=== PATIENT | female | born 1950 | race Caucasian/White ===

== ENCOUNTER 2025-01-15 15:09 | Observation (INO) ==
[2025-01-15 15:59] LABS: Basophils # (auto) 0.03 K/uL (0.00-0.20); Basophils % (auto) 0.5 %; Eosinophils # (auto) 0.15 K/uL (0.00-0.50); Eosinophils % (auto) 2.3 %; Hematocrit (blood only) 39.3 % (37.0-47.0); Hemoglobin 14.1 g/dl (12.0-16.0); Immature Granulocytes # (auto) 0.02 K/uL (0.01-0.20); Immature Granulocytes % (auto) 0.3 %; Lymphocytes # (auto) 2.07 K/uL (1.20-3.40); Lymphocytes % (auto) 32.4 %; Mean Corpuscular Hemoglobin 33.3 pg (25.0-34.0); Mean Corpuscular Hgb Conc 35.9 g/dL (32.0-36.0); Mean Corpuscular Volume 92.9 fL (80.0-100.0); Mean Platelet Volume 11.2 fL (9.4-12.4); Monocytes # (auto) 0.55 K/uL (0.11-0.59); Monocytes % (auto) 8.6 %; Neutrophils # (auto) 3.57 K/uL (1.40-6.50); Neutrophils % (auto) 55.9 %; Platelet Count 157 K/uL (130-400); RDW Coefficient of Variation 11.9 % (11.5-14.5); RDW Standard Deviation 40.9 fL (36.4-46.3); Red Blood Count 4.23 M/uL (4.20-5.40); White Blood Count 6.39 K/ul (4.8-10.8)
--- NOTE | 2025-01-15 16:11 | XRay Report ---
INDICATION: Chest pain. TECHNIQUE: Frontal radiograph of the chest. COMPARISON: None. FINDINGS: Cardiomegaly. Mild pulmonary vascular congestion.. No infiltrate, pleural effusion or pneumothorax. No acute osseous abnormality evident. IMPRESSION: Mild pulmonary vascular congestion. Electronically signed by Sai Reed 01-15-2025 4:10 PM
--- NOTE | 2025-01-15 16:17 | Electrocardiogram Report ---
Test Reason : Blood Pressure : */* mmHG Vent. Rate : 73 BPM Atrial Rate : 73 BPM P-R Int : 168 ms QRS Dur : 140 ms QT Int : 454 ms P-R-T Axes : 69 4 127 degrees QTcB Int : 500 ms Normal sinus rhythm Left bundle branch block Abnormal ECG No previous ECGs available Confirmed by Osvaldo Garcia ([id number]) on 01/15/2025 4:17:18 PM Referred By: Confirmed By: Osvaldo Garcia
--- NOTE | 2025-01-15 16:25 | Emergency Department Note ---
Impression & Plan Chest pain, Non-ST elevation IA (NSTEMI), Elevated brain natriuretic peptide (BNP) level, Pulmonary edema ED Provider Note HISTORY OF PRESENT ILLNESS: Patient is a 74-year-old female presenting with chest pain and shortness of breath. Patient reports that for the last week she has been having intermittent episodes of chest pain. Locates the pain to the substernal left side of her chest. Reports that any sort of exertion causes the pain to be significantly worse. She reports that at rest she is pain-free. She denies any history of cardiac stents. Reports she had very extensive cardiac workup, including echocardiograms and nuclear stress tests in the past. She reports that her nuclear stress test she recently had she failed. She is scheduled for a CT angiogram of her coronaries through [facility]. She states that it was recommended that she get a heart catheterization after he failed her nuclear stress test, but reports that there was an issue getting approval for the catheterization with insurance. She reports that the CT coronaries is set up to initiate the process for her to get a cath. States that she feels very short of breath more so than normal over the last few days. Denies any recent fevers. Reports a nonproductive cough. Denies any DVT or PE history. She is not on any anticoagulation or antiplatelet therapies. She reports she was admitted in September for congestive heart failure and has been taking her diuretic. She reports she has a history of left bundle branch block. ROS: as above PHYSICAL EXAM: Constitutional: Patient appears in no acute distress. HENT: Head: Normocephalic and atraumatic. Eyes: EOMI, PERRL Mouth/Throat: Mucous membranes moist. Neck: Trachea midline. Neck supple. Cardiovascular: RRR, No murmurs, rubs or gallops. Intact distal pulses. Pulmonary/Chest: No respiratory distress. Breath sounds clear and equal bilaterally. No wheezes or rales. Conversationally dyspneic Abdominal: Abdomen soft, no tenderness, rebound or guarding. Musculoskeletal: No edema, tenderness or deformity noted. Skin: Warm and dry. No rash, erythema, pallor or cyanosis Psychiatric: Appropriate mood and affect for situation. Neurological: Alert and keenly responsive. CN II-XII grossly intact, moving all extremities equally and fully. MDM: - Vitals signs showed hypertension. - History obtained via patient. History as above. - Chronic conditions affecting care: HTN; CHF - Differential diagnoses include, but are not limited to: Acute coronary syndrome; pulmonary embolism; dissection; tension pneumothorax; esophageal rupture; pneumonia - Order placed for continuous cardiac monitoring. At this time, monitor showed rate of 69 bpm with normal sinus rhythm, per my interpretation. - External medical records reviewed. - EKG image interpreted by myself showed normal sinus rhythm. Rate 73 bpm. QT 454. No acute ischemic changes. No palpable left bundle branch block. Patient reports she has a known left bundle branch block that was diagnosed in September 2024 - Laboratory workup interpreted by myself showed normal WBC; elevated BNP (169); elevated troponin (38..4); normal lipase - CXR image reviewed by myself showed evidence of some pulmonary vascular congestion, per my interpretation. Radiology notes mild pulmonary vascular congestion - Repeat troponin persistently elevated at 39.5 - Given patient's story, history and elevated troponins, will admit to hospital service for further evaluation and management. Patient is not appear overtly fluid overloaded on examination, so Lasix is not ordered. - Discussion was had with manager of case management about patient's case and need for admission - Hospitalist consulted for admission - Patient admitted to [facility] service for further evaluation and management. ASSESSMENT AND PLAN: Diagnosis: Chest pain; NSTEMI; elevated BNP; pulmonary edema Plan: admit Past Med/Surg History Problem List (Updated 01/15/25 @ 19:05 by Yuliana Ingram MD) Pulmonary edema (Acute) Elevated brain natriuretic peptide (BNP) level (Acute) Non-ST elevation IA (NSTEMI) (Acute) Chest pain (Acute) Recent urinary tract infection Hypertension Arthritis Hematuria Left flank pain Medical History Gout Surgical History History of dilation and curettage History of hysterectomy Family History Mother Hypertension Breast cancer Father Hypertension Colorectal cancer Social History Smoking Status: Never smoker Hx Alcohol Use: Yes Hx Substance Use: No Preferred Language: Danish marital status: Single current occupational status: retired Feels Safe at Home: Yes Allergies Allergies Allergy/AdvReac Type Severity Reaction Status Date / Time Sulfa (Sulfonamide Allergy Severe Verified 01/15/25 17:56 Antibiotics) Home Meds Home Medications Medication Instructions Recorded Confirmed amlodipine 5 mg tablet 5 mg PO QAM 01/15/25 01/15/25 aspirin 81 mg tablet,delayed 81 mg PO DAILY 01/15/25 01/15/25 release atenolol 50 mg tablet 50 mg PO QAM 01/15/25 01/15/25 atorvastatin 10 mg tablet 10 mg PO HS 01/15/25 01/15/25 buspirone 5 mg tablet 5 mg PO BID 01/15/25 01/15/25 cranberry 500 mg capsule 500 mg PO DAILY 01/15/25 01/15/25 duloxetine 60 mg capsule,delayed 60 mg PO DAILY 01/15/25 01/15/25 release furosemide 20 mg tablet 20 mg PO QAM 01/15/25 01/15/25 ibuprofen 200 mg tablet 800 mg PO DAILY 01/15/25 01/15/25 multivitamin 1 tab PO QA 01/15/25 01/15/25 trazodone 50 mg tablet 25 - 50 mg PO HS 01/15/25 01/15/25 valsartan 160 mg tablet 320 mg PO QA 01/15/25 01/15/25 vit C 250 mg-vit E 90 mg-zinc 40 2 tab PO QAM 01/15/25 01/15/25 mg-copper 1 [id number] capsule (PreserVision AREDS-2) Results & Data (ED) Vital Signs Vital Signs - 24 hr 01/15/25 15:11 01/15/25 15:19 01/15/25 15:19 Temperature 36.7 C Temperature Source Temporal Artery Scan Pulse Rate 82 Pulse Rate [Apical] 81 Pulse Rhythm Pulse Rhythm [Apical] Regular Pulse Strength [Apical] Normal Respiratory Rate 24 19 Respiratory Effort / Characteristics Non-Labored Spontaneous Non-Labored Spontaneous Respiratory Depth Normal Normal Respiratory Pattern Regular Blood Pressure 162/121 H Blood Pressure [Left Arm] 166/101 H Blood Pressure Mean 134 Blood Pressure Mean [Left Arm] 122 Blood Pressure Position [Left Arm] Lying Pulse Oximetry 99 98 Oxygen Delivery Method Room Air Room Air Room Air Sepsis Recent Fever Within 48 Hours No Sepsis New/Unexplained Change in Mental Status No Sepsis Action Taken by Nursing No Action Required 01/15/25 15:42 01/15/25 15:43 01/15/25 16:07 Temperature Temperature Source Pulse Rate 68 68 Pulse Rate [Apical] 72 Pulse Rhythm Regular Pulse Rhythm [Apical] Regular Pulse Strength [Apical] Normal Respiratory Rate 19 16 Respiratory Effort / Characteristics Non-Labored Spontaneous Respiratory Depth Normal Respiratory Pattern Regular Blood Pressure Blood Pressure [Left Arm] 151/81 H Blood Pressure Mean Blood Pressure Mean [Left Arm] 104 Blood Pressure Position [Left Arm] Lying Pulse Oximetry 97 98 Oxygen Delivery Method Room Air Room Air Sepsis Recent Fever Within 48 Hours Sepsis New/Unexplained Change in Mental Status Sepsis Action Taken by Nursing 01/15/25 18:00 Temperature Temperature Source Pulse Rate Pulse Rate [Apical] 69 Pulse Rhythm Pulse Rhythm [Apical] Pulse Strength [Apical] Normal Respiratory Rate 20 Respiratory Effort / Characteristics Non-Labored Spontaneous Respiratory Depth Normal Respiratory Pattern Regular Blood Pressure Blood Pressure [Left Arm] 157/132 H Blood Pressure Mean Blood Pressure Mean [Left Arm] 140 Blood Pressure Position [Left Arm] Lying Pulse Oximetry 97 Oxygen Delivery Method Room Air Sepsis Recent Fever Within 48 Hours Sepsis New/Unexplained Change in Mental Status Sepsis Action Taken by Nursing Laboratory Data 01/15/25 15:27 01/15/25 15:27 Lab Results 01/15/25 01/15/25 01/15/25 Range/Units 15:27 16:19 17:32 WBC 6.39 (4.8-10.8) K/ul RBC 4.23 (4.20-5.40) M/uL Hgb 14.1 (12.0-16.0) g/dl Hct 39.3 (37.0-47.0) % MCV 92.9 (80.0-100.0) fL MCH 33.3 (25.0-34.0) pg MCHC 35.9 (32.0-36.0) g/dL RDW Std Deviation 40.9 (36.4-46.3) fL RDW Coeff of [place] 11.9 (11.5-14.5) % Plt Count 157 (130-400) K/uL MPV 11.2 (9.4-12.4) fL Immature Gran % (Auto) 0.3 % Neut % (Auto) 55.9 % Lymph % (Auto) 32.4 % [place] % (Auto) 8.6 % Eos % (Auto) 2.3 % Baso % (Auto) 0.5 % Neut # (Auto) 3.57 (1.40-6.50) K/uL Lymph # (Auto) 2.07 (1.20-3.40) K/uL [place] # (Auto) 0.55 (0.11-0.59) K/uL Eos # (Auto) 0.15 (0.00-0.50) K/uL Baso # (Auto) 0.03 (0.00-0.20) K/uL Immature Gran # (Auto) 0.02 (0.01-0.20) K/uL Sodium 141 (136-145) mmol/L Potassium 3.6 (3.5-5.1) mmol/L Chloride 105 (98-107) mmol/L Carbon Dioxide 28 (21-32) mmol/L Anion Gap 8 (3-11) BUN 20 (6-23) mg/dl Creatinine 0.91 (0.6-1.2) mg/dl Est Cr Clr Drug Dosing 59.5 ml/min eGFR 65.38 BUN/Creatinine Ratio 22.0 H (10-20) Glucose 89 (70-99(Fasting)) mg/dl Calcium 9.6 (8.6-10.3) mg/dl Total Bilirubin 0.5 (0.2-1.0) mg/dl AST 20 (13-39) U/L ALT 21 (7-52) U/L Alkaline Phosphatase 104 (34-104) U/L Troponin I High Sens 38.4 H 39.5 H (0-14) pg/ml B-Natriuretic Peptide 169 H (0-100) pg/ml Total Protein 6.8 (6.0-8.3) gm/dl Albumin 4.3 (3.4-5.0) gm/dl Globulin 2.5 (2.5-4.0) gm/dl Albumin/Globulin Ratio 1.7 (0.9-2) Lipase 23 (11-82) U/L Administered Medications Discontinued Medications Aspirin (Aspirin 81 Mg Chew) 243 mg PO NOW STA Stop: 01/15/25 18:37 Last Admin: 01/15/25 18:46 Dose: 243 mg Documented By: SNS Ioversol (Optiray 320 125ml) 118 ml IV ONCE ONE Stop: 01/15/25 18:58 Last Admin: 01/15/25 18:58 Dose: 118 ml Documented By: [facility] Data Radiologist's Impression: Chest X-Ray 01/15/25 15:42 INDICATION: Chest pain. TECHNIQUE: Frontal radiograph of the chest. COMPARISON: None. FINDINGS: Cardiomegaly. Mild pulmonary vascular congestion.. No infiltrate, pleural effusion or pneumothorax. No acute osseous abnormality evident. IMPRESSION: Mild pulmonary vascular congestion. Electronically signed by Sai Reed 01-15-2025 4:10 PM Discharge Plan Visit Data Chief Complaint: Chest Pain Stated Complaint: CHEST PAIN, SOB ED Provider: Yuliana Ingram Discharge Problem: Chest pain, Non-ST elevation IA (NSTEMI), Elevated brain natriuretic peptide (BNP) level, Pulmonary edema Forms Stand Alone Forms: [facility] [employer] Prescriptions Prescriptions: No Action buspirone 5 mg tablet 5 mg PO BID trazodone 50 mg tablet 25 - 50 mg PO HS Rx Instructions: Patient takes 25mg - 50mg every night roughly 20 minutes before bedtime atorvastatin 10 mg tablet 10 mg PO HS amlodipine 5 mg tablet 5 mg PO QAM aspirin 81 mg Tablet,Delayed Release (Dr/Ec) 81 mg PO DAILY ibuprofen 200 mg Tablet 800 mg PO DAILY furosemide 20 mg tablet 20 mg PO QAM atenolol 50 mg tablet 50 mg PO QAM cranberry 500 mg Capsule 500 mg PO DAILY Rx Instructions: administer with meals valsartan 160 mg tablet 320 mg PO QAM duloxetine 60 mg capsule,delayed release(DR/EC) 60 mg PO DAILY PreserVision AREDS-2 250-90-40-1 mg Capsule 2 tab PO QAM multivitamin Tablet 1 tab PO QAM Referrals Referrals: Marci Jenkins CRNP [Primary Care Provider] -
[2025-01-15 16:32] LABS: Albumin Globulin Ratio 1.7 (0.9-2); Albumin Level 4.3 gm/dl (3.4-5.0); Bilirubin,Total 0.5 mg/dl (0.2-1.0); Calcium 9.6 mg/dl (8.6-10.3); Creatinine Clr Calc Pharmacy 59.5 ml/min; Globulin 2.5 gm/dl (2.5-4.0); Potassium 3.6 mmol/L (3.5-5.1); Total Protein 6.8 gm/dl (6.0-8.3)
[2025-01-15 16:35] LABS: Troponin I High Sensitivity 38.4 pg/ml (0-14)
--- NOTE | 2025-01-15 18:02 | History & Physical Report ---
Date of Service January 15, 2025 Assessment & Plan (1) Non-ST elevation MO (NSTEMI): (2) Chest pain: (3) Hypertension: Loreta Kohler is a pleasant 74yo female who presented on 01/15 for worsening chest pain and ASCENCIO x 1 week. The chest pain is located on her left upper chest wall, and is exacerbated with exertion. Normally, it only occurs with exertion, however over the past week it has begun to occur at rest. It woke her from sleep 2 nights ago. She describes it as a "soreness" that can last for 5 minutes at a time. #Chest pain/NSTEMI/unstable angina-Patient's story is concerning for progression of unstable angina, but PE also needs to be ruled out Aspirin 243 mg p.o. x 1 Atorvastatin 10 mg -> 80 mg p.o. HS and check lipid panel in the morning EKG did reveal a left bundle branch block; while we have no prior EKGs for comparison, patient does report she had an echocardiogram done in September that revealed an old LBBB (this is not new for her) Troponin 38.4 --> 39.5 on arrival; trend to peak Cardiology consult appreciated N.p.o. at midnight in the event that patient requires cardiac catheterization Will defer additional echo at this time Empiric heparin IV low dose, w/ bolus Nitroglycerin 0.4 mg SL PRN for angina x 3 max doses Chest CTA ordered, pending (signed out to overnight team) Continuous telemetry monitoring A.m. CBC, BMP, fasting lipid panel #Heart failure-unknown type BNP mildly elevated at 169 Patient reportedly failed a nuclear stress test outpatient on November 01 Patient had an echocardiogram done in September, but we do not have these records available Working to obtain records on failed nuc stress test + echo Strict I&O monitoring Daily weights Continue Lasix #HTN Continue atenolol, amlodipine, valsartan Disposition: Admit to MedSurg telemetry DNR/DNI Heart healthy, low-sodium diet; n.p.o. at midnight VTE PPx: Heparin IV History of Present Illness Chief Complaint: Chest pain Primary Care Provider: PAWEL Leon Edita is a pleasant 74-year-old female with PMH of HTN and arthritis. She presented on 01/15 for worsening chest pain and ASCENCIO x 1 week. The chest pain is located on her left upper chest wall, and is exacerbated with exertion. It is alleviated when she sits and rests. Normally, it only occurs with exertion, however over the past week it has begun to occur at rest. It woke her from sleep 2 nights ago. She describes it as a "soreness" that can last for 5 minutes at a time. No radiation to the shoulders/jaw/arms. He rates the pain 8/10 at worst when she is exerting herself; 2/10 at present while resting in bed. Patient is not taking any pain medicine at home for this pain. No prior history of MO, but significant family history of MIs; both her brothers of heart attacks (one at the age of 5454 years old, and the other 11 months ago). Patient reports that she follows with Dr. Holland ([facility]). He recently underwent a nuclear stress test at [facility] on November 01, but was told by her primary care provider that she failed this test. On November 09, she called the office to schedule a cardiac catheterization, but this was denied. In regard to her trouble breathing, she reports it is mainly with exertion, but can occasionally occur at rest. She was recently hospitalized at [facility] from September 25 to for COVID/CHF. Her echocardiogram on October 24 did show a LBBB. Patient reports she is not currently on blood thinners. No prior history of DVT/PE. Patient reports that she took all her regular morning medicine today. Recently her blood pressure medications were changed; her valsartan was increased to 320 mg p.o. daily, and her atenolol was decreased from BID dosing to daily dosing. Patient denies smoking or tobacco use. No sick contacts. She does watch her salt intake, and denies any recent change in weight. She has an upcoming chest CTA scheduled for February 01 at [facility]. No prior history of GERD or reflux to her knowledge. ED course: ROS: Patient endorses dizziness/lightheadedness with walking, intermittent chest pain, chest palpitations (woke her from sleep two nights ago), dry cough, ASCENCIO, intermittent swelling in legs. Patient denies fever, chills, night-sweats, syncope, headaches, rashes, tick bites, pleuritic CP, hemoptysis, SOB at rest, orthopnea, abdominal pain, N/V/D, change in urinary/bowel habits, burning with urination, blood in the urine/stool, redness or pain in legs. Allergies Allergy/AdvReac Type Severity Reaction Status Date / Time Sulfa (Sulfonamide Allergy Severe Verified 01/15/25 17:56 Antibiotics) Home Medications Medication Instructions Recorded Confirmed Type amlodipine 5 mg tablet 5 mg PO QAM 01/15/25 01/15/25 History aspirin 81 mg tablet,delayed 81 mg PO DAILY 01/15/25 01/15/25 History release atenolol 50 mg tablet 50 mg PO QAM 01/15/25 01/15/25 History atorvastatin 10 mg tablet 10 mg PO HS 01/15/25 01/15/25 History buspirone 5 mg tablet 5 mg PO BID 01/15/25 01/15/25 History cranberry 500 mg capsule 500 mg PO DAILY 01/15/25 01/15/25 History duloxetine 60 mg capsule,delayed 60 mg PO DAILY 01/15/25 01/15/25 History release furosemide 20 mg tablet 20 mg PO QAM 01/15/25 01/15/25 History ibuprofen 200 mg tablet 800 mg PO DAILY 01/15/25 01/15/25 History multivitamin 1 tab PO QAM 01/15/25 01/15/25 History trazodone 50 mg tablet 25 - 50 mg PO HS 01/15/25 01/15/25 History valsartan 160 mg tablet 320 mg PO QAM 01/15/25 01/15/25 History vit C 250 mg-vit E 90 mg-zinc 40 2 tab PO QAM 01/15/25 01/15/25 History mg-copper 1 [id number] capsule (PreserVision AREDS-2) Past Med/Surg History Problem List (Updated 01/15/25 @ 19:16 by Roberto Carlos Fall PA-C) Unstable angina Pulmonary edema (Acute) Elevated brain natriuretic peptide (BNP) level (Acute) Non-ST elevation MO (NSTEMI) (Acute) Chest pain (Acute) Recent urinary tract infection Hypertension Arthritis Hematuria Left flank pain Medical History Gout Surgical History History of dilation and curettage History of hysterectomy Family History (Updated 01/15/25 @ 20:48 by Noni Cabral MD) Mother Hypertension Breast cancer Father Hypertension Colorectal cancer Brother Coronary heart disease Social History Smoking Status: Never smoker Hx Alcohol Use: Yes Hx Substance Use: No Preferred Language: Frisian marital status: Single current occupational status: retired Feels Safe at Home: Yes Review of Systems Review of Systems: See HPI above Physical Exam Physical Exam: General: no acute distress; pleasant affect; non-toxic appearing; well- nourished; cooperative; SpO2 97% on RA HEENT: normocephalic, atraumatic; no scleral icterus; PERRLA w/ EOMs intact; vision and hearing grossly intact Neck: supple; no lymphadenopathy; trachea midline Skin: warm, dry without signs of tenting; no cyanosis; no rashes, bruising, lesions, or erythema noted CV: Left upper chest wall is mildly TTP; no rashes or bruising appreciated; RRR; S1/S2 normal; no murmurs/rubs/gallops; pulses intact and symmetric at radial, DP, and PT Lungs: no acute respiratory distress; symmetrical chest wall expansion; clear breath sounds across all lung higgins w/o adventitious sounds; no wheezing ABD: Soft, NTP; BS present; no rebound/guarding; no distention MSK: no tics or fasciculations; no edema noted in the LEs b/l, nonerythematous Neuro: A&Ox3; normal mood and affect; fluent speech; no focal deficits; sens ation intact and symmetric in the LEs bilaterally Results & Data Results & Data Vital Signs (Past 12 Hours) Vital Signs Temp Pulse Pulse Resp BP BP Pulse Ox 01/15/25 16:07 72 16 151/81 H 98 01/15/25 15:43 68 19 97 01/15/25 15:42 68 01/15/25 15:19 81 19 166/101 H 98 01/15/25 15:19 01/15/25 15:11 36.7 C 82 24 162/121 H 99 O2 Del Method 01/15/25 16:07 Room Air 01/15/25 15:43 Room Air 01/15/25 15:42 01/15/25 15:19 Room Air 01/15/25 15:19 Room Air 01/15/25 15:11 Room Air Laboratory Results Abnormal lab results 01/15/25 01/15/25 Range/Units 15:27 16:19 BUN/Creatinine Ratio 22.0 H (10-20) Troponin I High Sens 38.4 H (0-14) pg/ml B-Natriuretic Peptide 169 H (0-100) pg/ml Diagnostic Findings Chest X-Ray 01/15/25 15:42 INDICATION: Chest pain. TECHNIQUE: Frontal radiograph of the chest. COMPARISON: None. FINDINGS: Cardiomegaly. Mild pulmonary vascular congestion.. No infiltrate, pleural effusion or pneumothorax. No acute osseous abnormality evident. IMPRESSION: Mild pulmonary vascular congestion. Electronically signed by Sai Reed 01-15-2025 4:10 PM ECG Additional Comments: ECG revealed NSR at 73 bpm; QTc 500, LBBB Code Status & VTE Plan Code Status DNR/DNI VTE Prophylaxis Plan VTE Prophylaxis will be ordered: Yes Supervising Physician Co-Signing Physician Notes BIJAN Supervision Note: I personally saw and examined the patient. I verified all bull points and agree with BIJAN Fall with the following exceptions and/or additions: S-this patient is a 74-year-old female with a history of HTN, CHF, obesity, HLD, anxiety/depression, AYDEN, who presents with 1 week of worsening chest pain with exertion that is relieved with rest. But also now having chest pain waking her from sleep. She is also feeling short of breath with minimal exertion. She has gained 6 pounds in the last several weeks, but thinks her leg swelling is actually improved since starting Lasix a few months ago. No recent cough or cold symptoms or fevers or chills. No history of autoimmune or thyroid disorders. She reports she had an abnormal nuclear stress test as an outpatient and is awaiting approval from insurance for cardiac catheterization. History and ROS otherwise reviewed as above O- Vitals reviewed Gen: AAOx3, NAD, obese HEENT: Anicteric sclerae, EOMI CV: RRR no mgr nl S1S2 Pulm: CTAB no wcr Abd: +BS soft NT ND no masses or hernias Ext: No edema, 2+ DP pulses Skin: No rashes, warm/dry Neuro: Full strength throughout CBC, BMP, troponin, CT angiogram chest, chest x-ray, ECG reviewed A/P-47-phoi-old female here with chest pain and dyspnea on exertion. Troponin mildly elevated and with LBBB with reported abnormal outpatient nuclear stress test recently. Patient also with weight gain, elevated BNP, evidence of CHF on chest x-ray. Could also potentially have acute exacerbation of CHF, unknown EF. Likely preserved EF as she is not on any typical guideline directed medical therapy for HFrEF. CT angiogram chest negative for PE but does show severe cardiomegaly and a moderate pericardial effusion. No history of autoimmune disorders or thyroid disorder. -Change p.o. Lasix to Lasix 20 Mg IV twice daily -Keep n.p.o. in case of cardiac catheterization tomorrow -Check TSH, serial troponin, NYA, and BioFire given pericardial effusion -Check echocardiogram PG Care Time/CCT Total # of Minutes Spent Total Time Spent with Patient: Total time spent is greater than 50% in coordination of care (as documented) at patient's floor/unit and/or counseling patient: Coding [place] [address] INT INP/OBS CARE 3/75MIN Patient Type Established Medical Decision Making High Complexity Diagnoses Non-ST elevation MO (NSTEMI) I21.4 Chest pain R07.9 Hypertension I10
[2025-01-15] MEDS: ASPIRIN 81 MG CHEW PO STA (18:46)
[2025-01-15] MEDS: OPTIRAY 320 125ml IV ONE (18:58)
--- NOTE | 2025-01-15 19:34 | CT Scan Report ---
EXAMINATION: CT angio chest PE protocol CLINICAL HISTORY: Chest pain PRIORS: Chest radiograph today TECHNIQUE: Contiguous axial images were obtained through the chest with the use of intravenous contrast. Sagittal and coronal reformations are supplied. FINDINGS: The pulmonary arteries are well opacified. No central or peripheral pulmonary embolism Heart size is markedly enlarged with a moderate pericardial effusion. This measures up to 7.7 mm anteriorly and 8.1 mm dependently. No adenopathy in the chest. Moderate calcified atherosclerotic disease identified. Trachea and mainstem bronchi patent. Thyroid within normal limits. In lung windows, chest is well expanded. No diffuse interstitial edema. Calcified granuloma present in the right lung. No dominant mass or airspace consolidation. No pleural effusion. Limited visualization of the upper abdomen shows possible heterogeneous fatty infiltration of the liver. Possible gallstone noted. A possible calcified splenic artery aneurysm measuring 9.5 mm, image 105, series 400. IMPRESSION: 1. No CT evidence of a pulmonary embolism or acute cardiopulmonary process. 2. Severe cardiomegaly with moderate pericardial effusion. 3. Nonacute findings noted above. ACT 112: Positive. There are findings on this examination that require communication between the performing entity and the patient following Patient Test Result Information Act ([place] ACT 112) guidelines. Electronically signed by Ade Valente 01-15-2025 7:33 PM
[2025-01-15 19:36] LABS: INR 0.9 (0.9-1.1); Partial Thromboplastin Ratio 0.9; Partial Thromboplastin Time 25 Seconds (21-31); Prothrombin Time 10.1 Seconds (9.0-12.0)
[2025-01-15] MEDS: HEPARIN SOD (PORCINE) 1000 UNIT/ML IV ONE (19:44)
[2025-01-15] MEDS: HEPARIN 25000 UNIT/500 ML D5W 25,000 UNITS/500 ML BAG IV SCH (19:46)
[2025-01-15] MEDS: Heparin IV Adult Wt-Based Low-Dose w/ INITIAL Bolus Protocol IV STA (19:55)
[2025-01-15] MEDS: FUROSEMIDE INJ 20 MG/2 ML VIAL IV ONE (21:07)
[2025-01-15 21:44] LABS: Adenovirus PCR Not Detected (NotDetected); Bordetella parapertussis PCR Not Detected (NotDetected); Bordetella pertussis PCR Not Detected (NotDetected); Chlamydia pneumoniae PCR Not Detected (NotDetected); Coronavirus 229E PCR Not Detected (NotDetected); Coronavirus CoV-2 (COVID19)PCR Not Detected (NotDetected); Coronavirus HKU1 PCR Not Detected (NotDetected); Coronavirus NL63 PCR Not Detected (NotDetected); Coronavirus OC43PCR Not Detected (NotDetected); Human Metapneumovirus PCR Not Detected (NotDetected); Influenza A PCR Not Detected (NotDetected); Influenza B PCR Not Detected (NotDetected); Mycoplasma pneumoniae PCR Not Detected (NotDetected); Parainfluenza Virus 1 PCR Not Detected (NotDetected); Parainfluenza Virus 2 PCR Not Detected (NotDetected); Parainfluenza Virus 3 PCR Not Detected (NotDetected); Parainfluenza Virus 4 PCR Not Detected (NotDetected); Respiratory Syncytial VirusPCR Not Detected (NotDetected); Rhinovirus/Enterovirus PCR Not Detected (NotDetected)
[2025-01-15] MEDS ORDERED: ONDANSETRON INJ 2 MG/ML 2 ML VIAL IV PRN (22:12)
[2025-01-15] MEDS ORDERED: ACETAMINOPHEN 325 MG TAB PO PRN (22:12)
[2025-01-15] MEDS ORDERED: NITROGLYCERIN SL 0.4 MG/TAB TAB SL PRN (22:12)
[2025-01-15] MEDS: traZODone HCL 50 MG TAB PO SCH (22:47)
[2025-01-15] MEDS: busPIRone 5 MG TAB PO SCH (22:48)
[2025-01-15] MEDS: ATORVASTATIN 40 MG TAB PO SCH (22:48)
[2025-01-16 02:20] LABS: Basophils # (auto) 0.03 K/uL (0.00-0.20); Basophils % (auto) 0.5 %; Eosinophils # (auto) 0.14 K/uL (0.00-0.50); Eosinophils % (auto) 2.3 %; Hemoglobin 13.5 g/dl (12.0-16.0); Immature Granulocytes # (auto) 0.02 K/uL (0.01-0.20); Immature Granulocytes % (auto) 0.3 %; Lymphocytes # (auto) 2.21 K/uL (1.20-3.40); Lymphocytes % (auto) 36.8 %; Mean Corpuscular Hemoglobin 32.7 pg (25.0-34.0); Mean Corpuscular Hgb Conc 35.5 g/dL (32.0-36.0); Mean Platelet Volume 10.7 fL (9.4-12.4); Monocytes # (auto) 0.44 K/uL (0.11-0.59); Monocytes % (auto) 7.3 %; Neutrophils # (auto) 3.17 K/uL (1.40-6.50); Neutrophils % (auto) 52.8 %; Platelet Count 142 K/uL (130-400); RDW Coefficient of Variation 11.9 % (11.5-14.5); RDW Standard Deviation 39.7 fL (36.4-46.3); Red Blood Count 4.13 M/uL (4.20-5.40); White Blood Count 6.01 K/ul (4.8-10.8)
[2025-01-16 02:35] LABS: BUN Creatinine Ratio 19.8 (10-20); Calcium 9.3 mg/dl (8.6-10.3); Chol HDL Ratio 2.4 (0-5); Creatinine Clr Calc Pharmacy 66.7 ml/min; Magnesium 1.8 mg/dl (1.7-2.4); Potassium 3.3 mmol/L (3.5-5.1)
[2025-01-16 02:41] LABS: Troponin I High Sensitivity 31.5 pg/ml (0-14)
[2025-01-16 02:50] LABS: Thyroid Stimulating Hormone 2.866 uIu/ml (0.300-4.500)
[2025-01-16 02:58] LABS: ANTI-Xa, UFH(UnfractionatedHep 0.36 IU/ml (0.3-0.7)
[2025-01-16 07:41] LABS: Estimated Average Glucose 103 mg/dl; Hemoglobin A1C 5.2 % (4.5-5.6)
[2025-01-16] MEDS: amLODIPine BESYLATE 5 MG TAB PO SCH (10:03)
[2025-01-16] MEDS: POTASSIUM CHLORIDE CRTAB 20 MEQ TABCR PO STA (10:03)
[2025-01-16] MEDS: ASPIRIN 81 MG ECTAB PO SCH (10:03)
[2025-01-16] MEDS: ATENOLOL 50 MG TABLET PO SCH (10:04)
[2025-01-16] MEDS: DULoxetine HCL 60 MG CAP PO SCH (10:05)
[2025-01-16] MEDS: FUROSEMIDE INJ 20 MG/2 ML VIAL IV SCH (10:05)
[2025-01-16] MEDS: VALSARTAN 80 MG TAB PO SCH (10:05)
--- NOTE | 2025-01-16 11:40 | XCELERA ---
[id number]
--- NOTE | 2025-01-16 12:13 | Hospitalist Progress Note ---
Date of Service January 16, 2025 Assessment & Plan (1) Non-ST elevation [place] (NSTEMI): (2) Chronic diastolic CHF (congestive heart failure): (3) Pericardial effusion: (4) Hypertension: Loreta Kohler is a pleasant 74yo female who presented on 01/15 for worsening chest pain and ASCENCIO x 1 week. The chest pain is located on her left upper chest wall, and is exacerbated with exertion. Normally, it only occurs with exertion, however over the past week it has begun to occur at rest. It woke her from sleep 2 nights ago. She describes it as a "soreness" that can last for 5 minutes at a time. #Chest pain/NSTEMI/unstable angina-Patient's story is concerning for progression of unstable angina, but PE also needs to be ruled out Aspirin 243 mg p.o. x 1 Atorvastatin 10 mg -> 80 mg p.o. HS and check lipid panel in the morning EKG did reveal a left bundle branch block; while we have no prior EKGs for comparison, patient does report she had an echocardiogram done in September that revealed an old LBBB (this is not new for her) Troponin 38.4 --> 39.5 on arrival; trend to peak Cardiology consult appreciated N.p.o. at midnight in the event that patient requires cardiac catheterization Will defer additional echo at this time Empiric heparin IV low dose, w/ bolus Nitroglycerin 0.4 mg SL PRN for angina x 3 max doses Chest CTA ordered, pending (signed out to overnight team) Continuous telemetry monitoring A.m. CBC, BMP, fasting lipid panel #Heart failure-unknown type BNP mildly elevated at 169 Patient reportedly failed a nuclear stress test outpatient on November 01 Patient had an echocardiogram done in September, but we do not have these records available Working to obtain records on failed nuc stress test + echo Strict I&O monitoring Daily weights Continue Lasix #HTN Continue atenolol, amlodipine, valsartan [facility] Heart healthy, low-sodium diet; n.p.o. at midnight VTE PPx: Heparin IV Admission and Anticipated Discharge Date Admission Date: January 15, 2025 Results & Data Results & Data Vital Signs (Past 12 Hours) Vital Signs Temp Pulse Resp BP Pulse Ox O2 Del Method 01/16/25 11:04 36.7 C 67 18 123/84 98 Room Air 01/16/25 08:54 36.7 C 65 18 128/77 95 Room Air 01/16/25 03:58 36.5 C 82 18 137/85 95 Room Air PG Care Time/CCT Total # of Minutes Spent Total Time Spent with Patient: Total time spent is greater than 50% in coordination of care (as documented) at patient's floor/unit and/or counseling patient: Coding Diagnoses Non-ST elevation NJ (NSTEMI) I21.4 Chronic diastolic CHF (congestive heart failure) I50.32 Pericardial effusion I31.39 Hypertension I10
--- NOTE | 2025-01-16 12:15 | Cardiology Consultation ---
Date of Consultation January 16, 2025 Assessment & Plan (1) Unstable angina: -Classic symptoms in the face of an abnormal nuclear stress test (October 2024). -Strong family history of early coronary artery disease -Agree with intravenous heparin. -Proceed with cardiac catheterization later today. (2) Pericardial effusion: -Moderate by CT scan. -Trivial to small by echocardiogram. -No echocardiographic signs of tamponade. (3) Hypertension: -Adequate control on current regimen. (4) Hypercholesterolemia: -Agree with increasing atorvastatin dose to 80 mg daily. (5) Chronic diastolic CHF (congestive heart failure): -Compensated at this time. -Occurred in the face of a COVID infection, September 2024. History of Present Illness Attending Physician: Noni Cabral MD History of Present Illness Mrs. Roblero is a 74-year-old female admitted yesterday with a chest pain syndrome. This consultation was ordered to assist in her cardiac management. Of note, the patient typically follows with Dr. Holland in [place], [place]. The patient was in her usual state of health until earlier this year when she developed a chest pain syndrome. She underwent a nuclear stress test on November 01 which was apparently abnormal. Cardiac catheterization was recommended, however, not approved by her insurance company. She was scheduled for a cardiac CT scan next month. Over the last week, the patient has been experiencing exertional left-sided chest discomfort and associated dyspnea. Her symptoms are very reproducible. Over the last several days, she has been experiencing her symptoms at rest. Her primary care physician urged her to proceed to our emergency room. The patient was diagnosed with congestive heart failure during a COVID infection back in September. No echocardiogram present for review. Current echocardiogram notes normal left ventricular systolic function. Her medication reviewed in detail. Past medical and surgical history 1. Hypertension 2. Mild left ventricular perjury 3. Hypercholesterolemia 4. LBBB 5. Diastolic congestive heart failureDece2023 6. Gout 7. Hysterectomy 8. D&C Social history and lives with her in [place], [place] No tobacco Rare alcohol Family history Mother at 58 from colon cancer Father in his 50s from colon cancer A brother at 54 from an [place] Review of systems A 10 point review of system was undertaken and negative except that described above. Allergies Allergy/AdvReac Type Severity Reaction Status Date / Time Sulfa (Sulfonamide Allergy Severe Verified 01/15/25 17:56 Antibiotics) Home Medications Medication Instructions Recorded Confirmed Type amlodipine 5 mg tablet 5 mg PO QAM 01/15/25 01/15/25 History aspirin 81 mg tablet,delayed 81 mg PO DAILY 01/15/25 01/15/25 History release atenolol 50 mg tablet 50 mg PO QAM 01/15/25 01/15/25 History atorvastatin 10 mg tablet 10 mg PO HS 01/15/25 01/15/25 History buspirone 5 mg tablet 5 mg PO BID 01/15/25 01/15/25 History cranberry 500 mg capsule 500 mg PO DAILY 01/15/25 01/15/25 History duloxetine 60 mg capsule,delayed 60 mg PO DAILY 01/15/25 01/15/25 History release furosemide 20 mg tablet 20 mg PO QAM 01/15/25 01/15/25 History ibuprofen 200 mg tablet 800 mg PO DAILY 01/15/25 01/15/25 History multivitamin 1 tab PO QAM 01/15/25 01/15/25 History trazodone 50 mg tablet 25 - 50 mg PO HS 01/15/25 01/15/25 History valsartan 160 mg tablet 320 mg PO QAM 01/15/25 01/15/25 History vit C 250 mg-vit E 90 mg-zinc 40 2 tab PO QAM 01/15/25 01/15/25 History mg-copper 1 [id number] capsule (PreserVision AREDS-2) Patient History Medical History (Updated 01/16/25 @ 12:10 by Osvaldo Garcia MD) Unstable angina Gout Surgical History History of dilation and curettage History of hysterectomy Family History (Updated 01/15/25 @ 20:48 by Noni Cabral MD) Mother Hypertension Breast cancer Father Hypertension Colorectal cancer Brother Coronary heart disease Social History Smoking Status: Never smoker Second Hand Exposure: No; Do You Dip or Chew Tobacco: No; Tobacco Cessation Education Requested by Patient: No Hx Alcohol Use: Yes Alcohol type: other Hx Substance Use: No Preferred Language: Vietnamese Communication Ability: Effective Psych Nurse Required: No Beliefs That Will Affect Care: None marital status: Single Current Living Situation: Spouse current occupational status: retired Other Information That Helps Us Care for You: No Feels Safe at Home: Yes Safety Concerns: Feels Safe At This Time Assistive Devices: Glasses Physical Exam Physical Exam: In general this is a well-developed well-nourished white female in no acute distress. HEENT exam is negative. Neck reveals normal carotid upstrokes without bruits. Jugular venous pressure is flat at 90. There is no thyromegaly. Car diovascular exam reveals a regular rhythm with distant heart sounds. No obvious murmurs. Lungs are clear without rales, rhonchi, or wheezes. Abdomen is soft without bruits. Extremities reveal intact radial artery and posterior tibial pulses bilaterally. There is no peripheral edema. Results & Data Vital Signs (Past 12 Hours) Vital Signs Temp Pulse Resp BP Pulse Ox O2 Del Method 01/16/25 11:04 36.7 C 67 18 123/84 98 Room Air 01/16/25 08:54 36.7 C 65 18 128/77 95 Room Air 01/16/25 03:58 36.5 C 82 18 137/85 95 Room Air Laboratory Results Initial high-sensitivity troponin was 30.4 with follow-up values of 39.5, 31.9, and 31.5. Diagnostic Findings CT scan of the chest noted significant cardiomegaly and a moderate pericardial effusion. Echocardiogram notes normal left ventricular systolic function, mild LVH, and a trivial to small pericardial effusion. EKG notes sinus rhythm with a complete left bundle branch block. Chest x-ray notes cardiomegaly. PG Care Time/CCT Total # of Minutes Spent Total Time Spent with Patient: Total time spent is greater than 50% in coordination of care (as documented) at patient's floor/unit and/or counseling patient: Coding Level of Care Code 18079 INT INP/OBS CARE 3/75MIN Diagnoses Unstable angina I20.0 Pericardial effusion I31.39 Hypertension I10 Hypercholesterolemia E78.00 Chronic diastolic CHF (congestive heart failure) I50.32
--- NOTE | 2025-01-16 16:13 | Pre Anesthesia Assessment ---
Date of Service January 16, 2025 Pre Sedation Assessment Vital Signs Temp Pulse Pulse Resp BP BP Pulse Ox 01/16/25 14:48 66 14 143/72 H 99 01/16/25 11:04 98.1 F 67 18 123/84 98 01/16/25 08:54 98.1 F 65 18 128/77 95 01/16/25 03:58 97.7 F 82 18 137/85 95 01/15/25 22:12 72 01/15/25 21:56 97.3 F L 66 18 163/112 H 97 01/15/25 21:44 68 20 182/86 H 94 01/15/25 19:51 18 97 01/15/25 19:48 69 14 98 01/15/25 19:44 66 01/15/25 19:36 69 17 01/15/25 19:30 169/101 H 01/15/25 19:30 169/101 H 01/15/25 19:30 169/101 H 01/15/25 19:30 169/101 H 01/15/25 19:30 169/101 H 01/15/25 19:30 169/101 H 01/15/25 19:30 169/101 H 01/15/25 19:30 169/101 H 01/15/25 19:30 169/101 H 01/15/25 19:30 169/101 H 01/15/25 19:30 169/101 H 01/15/25 19:21 79 15 98 01/15/25 19:12 68 15 99 01/15/25 19:06 69 21 97 01/15/25 19:02 169/99 H 01/15/25 19:02 169/99 H 01/15/25 19:02 169/99 H 01/15/25 19:02 169/99 H 01/15/25 19:02 169/99 H 01/15/25 18:39 71 16 97 01/15/25 18:31 178/91 H 01/15/25 18:31 178/91 H 01/15/25 18:31 178/91 H 01/15/25 18:31 178/91 H 01/15/25 18:31 178/91 H 01/15/25 18:31 178/91 H 01/15/25 18:31 178/91 H 01/15/25 18:31 178/91 H 01/15/25 18:31 178/91 H 01/15/25 18:06 82 20 98 01/15/25 18:03 69 21 98 01/15/25 18:00 157/132 H 01/15/25 18:00 157/132 H 01/15/25 18:00 157/132 H 01/15/25 18:00 157/132 H 01/15/25 18:00 157/132 H 01/15/25 18:00 157/132 H 01/15/25 18:00 157/132 H 01/15/25 18:00 157/132 H 01/15/25 18:00 157/132 H 01/15/25 18:00 69 20 157/132 H 97 01/15/25 17:54 69 19 97 01/15/25 17:45 68 23 97 01/15/25 17:36 74 25 H 98 01/15/25 17:30 170/89 H 01/15/25 17:30 170/89 H 01/15/25 17:30 170/89 H 01/15/25 17:30 170/89 H O2 Del Method 01/16/25 14:48 Room Air 01/16/25 11:04 Room Air 01/16/25 08:54 Room Air 01/16/25 03:58 Room Air 01/15/25 22:12 01/15/25 21:56 Room Air 01/15/25 21:44 Room Air 01/15/25 19:51 01/15/25 19:48 01/15/25 19:44 01/15/25 19:36 01/15/25 19:30 01/15/25 19:30 01/15/25 19:30 01/15/25 19:30 01/15/25 19:30 01/15/25 19:30 01/15/25 19:30 01/15/25 19:30 01/15/25 19:30 01/15/25 19:30 01/15/25 19:30 01/15/25 19:21 01/15/25 19:12 01/15/25 19:06 01/15/25 19:02 01/15/25 19:02 01/15/25 19:02 01/15/25 19:02 01/15/25 19:02 01/15/25 18:39 01/15/25 18:31 01/15/25 18:31 01/15/25 18:31 01/15/25 18:31 01/15/25 18:31 01/15/25 18:31 01/15/25 18:31 01/15/25 18:31 01/15/25 18:31 01/15/25 18:06 01/15/25 18:03 01/15/25 18:00 01/15/25 18:00 01/15/25 18:00 01/15/25 18:00 01/15/25 18:00 01/15/25 18:00 01/15/25 18:00 01/15/25 18:00 01/15/25 18:00 01/15/25 18:00 Room Air 01/15/25 17:54 01/15/25 17:45 01/15/25 17:36 01/15/25 17:30 01/15/25 17:30 01/15/25 17:30 01/15/25 17:30 Cardiovascular + regular rate Respiratory + respiratory effort normal Pre-Sedation Airway Assessment Smoking Status: Never smoker Hx Sleep Apnea: No Hx Difficult Intubation: No Short, Thick Neck: No Thyromental Distance: > or= 3.5 Finger Breadths Oral Cavity: + WNL Mallampati Class: III ASA: ASA3 NPO Status Date of Last Intake of Fluids: 01/15/25 Time of Last Intake of Fluids: 20:00 Date of Last Intake of Solid Food: 01/15/25 Time of Last Intake of Solid Foods: 18:00 Procedure Planning Contraindications for Sedation: none Current Medications Reviewed: Yes Notes The planned sedation has been discussed with the patient. Informed Consent was obtained. I have identified the patient, determined the appropriateness of sedation and have assessed the patient immediately prior to the procedure. All medicine(s) and interventions are by my order.
[2025-01-16] MEDS: HEPARIN (PORCINE) 1000 UNIT/ML 10 ML (CATH LAB USE ONLY) ONE (16:46)
[2025-01-16] MEDS: MIDAZOLAM HCL 1 MG/ML 2ML VIAL ONE (16:46)
[2025-01-16] MEDS: fentaNYL citrate PF 100 MCG/2 ML VIAL ONE (16:47)
[2025-01-16] MEDS: niCARdipine 2,000 MCG/20 ML SYR ONE (16:47)
[2025-01-16] MEDS: OPTIRAY 350 ONE (16:47)
[2025-01-16] MEDS: NITROGLYCERIN/D5W 100MCG/ML 20ML SYR ONE (16:47)
[2025-01-16 17:27] VITALS: RESP 16
--- NOTE | 2025-01-16 17:50 | Post Anesthesia Assessment ---
Date of Service January 16, 2025 Post Sedation Assessment Vital Signs Temp Pulse Pulse Resp BP BP Pulse Ox 01/16/25 17:26 97.7 F 60 16 152/76 H 93 01/16/25 14:48 66 14 143/72 H 99 01/16/25 11:04 98.1 F 67 18 123/84 98 01/16/25 08:54 98.1 F 65 18 128/77 95 01/16/25 03:58 97.7 F 82 18 137/85 95 01/15/25 22:12 72 01/15/25 21:56 97.3 F L 66 18 163/112 H 97 01/15/25 21:44 68 20 182/86 H 94 01/15/25 19:51 18 97 01/15/25 19:48 69 14 98 01/15/25 19:44 66 01/15/25 19:36 69 17 01/15/25 19:30 169/101 H 01/15/25 19:30 169/101 H 01/15/25 19:30 169/101 H 01/15/25 19:30 169/101 H 01/15/25 19:30 169/101 H 01/15/25 19:30 169/101 H 01/15/25 19:30 169/101 H 01/15/25 19:30 169/101 H 01/15/25 19:30 169/101 H 01/15/25 19:30 169/101 H 01/15/25 19:30 169/101 H 01/15/25 19:21 79 15 98 01/15/25 19:12 68 15 99 01/15/25 19:06 69 21 97 01/15/25 19:02 169/99 H 01/15/25 19:02 169/99 H 01/15/25 19:02 169/99 H 01/15/25 19:02 169/99 H 01/15/25 19:02 169/99 H 01/15/25 18:39 71 16 97 01/15/25 18:31 178/91 H 01/15/25 18:31 178/91 H 01/15/25 18:31 178/91 H 01/15/25 18:31 178/91 H 01/15/25 18:31 178/91 H 01/15/25 18:31 178/91 H 01/15/25 18:31 178/91 H 01/15/25 18:31 178/91 H 01/15/25 18:31 178/91 H 01/15/25 18:06 82 20 98 01/15/25 18:03 69 21 98 01/15/25 18:00 157/132 H 01/15/25 18:00 157/132 H 01/15/25 18:00 157/132 H 01/15/25 18:00 157/132 H 01/15/25 18:00 157/132 H 01/15/25 18:00 157/132 H 01/15/25 18:00 157/132 H 01/15/25 18:00 157/132 H 01/15/25 18:00 157/132 H 01/15/25 18:00 69 20 157/132 H 97 01/15/25 17:54 69 19 97 O2 Del Method 01/16/25 17:26 Room Air 01/16/25 14:48 Room Air 01/16/25 11:04 Room Air 01/16/25 08:54 Room Air 01/16/25 03:58 Room Air 01/15/25 22:12 01/15/25 21:56 Room Air 01/15/25 21:44 Room Air 01/15/25 19:51 01/15/25 19:48 01/15/25 19:44 01/15/25 19:36 01/15/25 19:30 01/15/25 19:30 01/15/25 19:30 01/15/25 19:30 01/15/25 19:30 01/15/25 19:30 01/15/25 19:30 01/15/25 19:30 01/15/25 19:30 01/15/25 19:30 01/15/25 19:30 01/15/25 19:21 01/15/25 19:12 01/15/25 19:06 01/15/25 19:02 01/15/25 19:02 01/15/25 19:02 01/15/25 19:02 01/15/25 19:02 01/15/25 18:39 01/15/25 18:31 01/15/25 18:31 01/15/25 18:31 01/15/25 18:31 01/15/25 18:31 01/15/25 18:31 01/15/25 18:31 01/15/25 18:31 01/15/25 18:31 01/15/25 18:06 01/15/25 18:03 01/15/25 18:00 01/15/25 18:00 01/15/25 18:00 01/15/25 18:00 01/15/25 18:00 01/15/25 18:00 01/15/25 18:00 01/15/25 18:00 01/15/25 18:00 01/15/25 18:00 Room Air 01/15/25 17:54 Recovery Score Activity: Moves 4 extremities Respiration: Deep Breath/Cough Circulation: +/-20% PreAnes Value Consciousness: Fully Awake Oxygen Saturation: O2 needed for >90% Discharge Sedation Level of Care: Fast Track Phase II Post Sedation Plan On clinical assessment, the patient appears to have tolerated the sedation without complications. Patient is recovering as anticipated. Patient will continue to be monitored by nursing and may be discharged when sedation discharge criteria are met per below protocol. Upon Completions of procedure up to 15 minutes continue every 5 minute vital signs and the P.A.R. score; then discharge to a Phase I or Fast Track to Phase II per the following guidelines: * Discharge Patient to appropriate Phase II area if PAR is 8 or greater or return to pre- procedure baseline. The post - procedure orders will be as directed. * If PAR score is less than 8 or not return to pre-procedure baseline then patient will follow Phase I monitoring till PAR is reached for Phase II. The Phase I may be done in procedure room or may call to secure a Phase I area. * If naloxone or flumazenil are used for reversal, hold in Phase I for continued monitoring from when last reversal dose was given for a minimum of 60 minutes or longer pending the nurse and/or physician discretion of patient condition before discharge to Phase II. Please call the Sedation Physician to re-evaluate and complete post-note for discharge to Phase II area. Do NOT discharge from procedure sedation or Phase 1 until post- sedation evaluation note is complete by procedure /sedation MD Sedation Discharge Instructions to be given to the patient at discharge to home.
[2025-01-16 17:59] VITALS: TEMP 97.9
--- NOTE | 2025-01-16 18:00 | Cardiac Catheterization ---
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 Cardiac Status Clinical evaluation leading to the procedure CAD Presenation: Positive Stress Test Diagnostic Physicians Name: Jean Hairston MD Closure Device Recommendations: Medical Therapy and/or Counseling Cardiac Cath Procedure Full Procedure Date January 16, 2025 Pre-Procedure Diagnosis Pre-Procedure Diagnosis: Angina and Positive Stress Test AUC Score AUC Score: 7 Post-Procedure Diagnosis Post-Procedure Diagnosis: Normal Coronary Arteries and Normal Intracardiac Pressures Procedure(s) Performed Procedure(s) Performed: Coronary Angiography and Left Heart Cath V Belt Finisher Jean Hairston MD Fishing Vessel Deckhand(s) Showers Estimated Blood Loss Estimated Blood Loss: 5 Medication(s) Medication(s): Fentanyl, Heparin, Lidocaine 1%, Nicardipine, Nitroglycerin and Versed Summary of Findings Indication: Abnormal stress test, suspected unstable angina Access: 6 Fr slender right radial artery Catheters: [place] Findings: LM -normal caliber, angiographically normal LAD -medium caliber, mildly ectatic in early-mid segment just after takeoff of D1. Remainder of vessel without significant disease and distal vessel wraps around apex. Large D1 without significant disease. Circumflex -medium caliber, no significant disease. OM 2, left PLB without disease RCA -dominant, large caliber, angiographically normal LVEDP -8 Arterial Closure: TR band Summary: 1. Essentially normal coronary arteries 2. Normal intracardiac filling pressure Recommendations: Stress test is false positive. Continue ASCVD risk factor modification. Blood pressure prior to procedure >200s. Continued to address blood pressure as an outpatient Hemodynamics Rest Ao:: 128/66/95 Final Ao: 138/70/87 LV: 133/8 Recommendations Recommendations: Medical Therapy and/or Counseling Radiation Exposure (mGy) 926 Contrast (mls) 45 Anesthesia Moderate 8629-1061 Procedural Complication(s) None Disposition Fitness Center Attendant Holding/Recovery I attest to the content of the Intraoperative Record and any orders documented therein. Any exceptions are noted below. [facility] Card Cath Procedure Codes Cardiac Catheterization Procedure 1: Cardiovascular Cath Procedures: 49771 Coronaries and LHC (+/-LV) Moderate Sedation Procedure 1: Sedation/Anesthesia: 22309 Mod Sedation by the same physician;Init15 Min Child Age 5 & Up PG Care Time/CCT Total # of Minutes Spent Total Time Spent with Patient: Total time spent is greater than 50% in coordination of care (as documented) at patient's floor/unit and/or counseling patient:
[2025-01-16 18:19] VITALS: BP 119/63; PULSE 66; O2SAT 96
--- NOTE | 2025-01-16 18:56 | Discharge Summary ---
Discharge Summary Date of Service January 16, 2025 Principal Dx & Hospital Course #1 = Principal Diagnosis (1) Non-ST elevation UT (NSTEMI): (2) Chronic diastolic CHF (congestive heart failure): (3) Pericardial effusion: (4) Hypertension: Plan This patient is a 74yo female with a history of HTN, depression/anxiety, HLD, who presented on 01/15 for worsening chest pain and ASCENCIO x 1 week along with weight gain and elevated BNP. The chest pain is located on her left upper chest wall, and is exacerbated with exertion. Normally, it only occurs with exertion, however over the past week it has begun to occur at rest. It woke her from sleep 2 nights ago. She describes it as a "soreness" that can last for 5 minutes at a time. CXR showed mild pulmonary vascular congestion and CT angiogram chest showed moderate pericardial effusion, severe cardiomegaly, but negative for PE or pneumonia or other pulmonary pathology. #Chest pain/myocardial demand ischemia/acute on chronic HFpEF/uncontrolled HTN- patient's history was concerning for unstable angina. Her serial troponins were stable at 38/39//. An echocardiogram showed a small pericardial effusion but no wall motion abnormalities and with preserved EF. With weight gain, elevated BNP, and CHF on chest x-ray, she was given IV Lasix x 3 doses and had a lot of improvement in her symptoms. EKG did reveal a left bundle branch block which patient reports is chronic. Because she had an abnormal outpatient nuclear stress test, she was started on a heparin drip and had a cardiac catheterization the next morning which showed clean coronary arteries and a normal LVEDP at 8. She was significantly hypertensive prior to the catheterization with systolic blood pressure of 220. Cardiology consult appreciated -Recommend improved blood pressure control-increase amlodipine to 5 Mg p.o. twice daily, and continue atenolol 50 Mg p.o. once daily, Lasix 20 Mg p.o. once daily, and valsartan 320 mg p.o. once daily -Recommend sodium restriction and fluid restriction-patient reports she has been drinking at least 3 to 4 L of water every day -Continue aspirin, statin -For small pericardial effusion, recommend ongoing follow-up with cardiology-TSH normal, NYA pending at the time of discharge #Depression/anxiety-no acute issues -Continue home duloxetine, trazodone DVT prophylaxis-heparin drip Disposition-stable for discharge to home Notes For Next Care Provider Medication Changes From Visit Increased amlodipine to 5 Mg p.o. twice daily Admission HPI Per Admitting Provider Edita is a pleasant 74-year-old female with PMH of HTN and arthritis. She presented on 01/15 for worsening chest pain and ASCENCIO x 1 week. The chest pain is located on her left upper chest wall, and is exacerbated with exertion. It is alleviated when she sits and rests. Normally, it only occurs with exertion, however over the past week it has begun to occur at rest. It woke her from sleep 2 nights ago. She describes it as a "soreness" that can last for 5 minutes at a time. No radiation to the shoulders/jaw/arms. He rates the pain 8/10 at worst when she is exerting herself; 2/10 at present while resting in bed. Patient is not taking any pain medicine at home for this pain. No prior history of UT, but significant family history of MIs; both her brothers of heart attacks (one at the age of 5454 years old, and the other 11 months ago). Patient reports that she follows with Dr. Holland ([facility]). He recently underwent a nuclear stress test at [facility] on November 01, but was told by her primary care provider that she failed this test. On November 09, she called the office to schedule a cardiac catheterization, but this was denied. In regard to her trouble breathing, she reports it is mainly with exertion, but can occasionally occur at rest. She was recently hospitalized at [facility] from September 25 to for COVID/CHF. Her echocardiogram on October 24 did show a LBBB. Patient reports she is not currently on blood thinners. No prior history of DVT/PE. Patient reports that she took all her regular morning medicine today. Recently her blood pressure medications were changed; her valsartan was increased to 320 mg p.o. daily, and her atenolol was decreased from BID dosing to daily dosing. Patient denies smoking or tobacco use. No sick contacts. She does watch her salt intake, and denies any recent change in weight. She has an upcoming chest CTA scheduled for February 01 at [facility]. No prior history of GERD or reflux to her knowledge. ED course: ROS: Patient endorses dizziness/lightheadedness with walking, intermittent chest pain, chest palpitations (woke her from sleep two nights ago), dry cough, ASCENCIO, intermittent swelling in legs. Patient denies fever, chills, night-sweats, syncope, headaches, rashes, tick bites, pleuritic CP, hemoptysis, SOB at rest, orthopnea, abdominal pain, N/V/D, change in urinary/bowel habits, burning with urination, blood in the urine/stool, redness or pain in legs. Discharge Exam Constitutional WD/WN, vitals as above Neck trachea midline, no thyromegaly Respiratory normal respiratory effort, lungs clear to auscultation Cardiovascular RRR, no murmur, no edema Chest (Breasts) Chest: normal inspection of chest Gastrointestinal (Abdomen) normal bowel sounds, soft, nontender, no hepatosplenomegaly Musculoskeletal Extremities: extremities normal to inspection; no cyanosis and no clubbing TR band on right wrist, no hematoma or bleeding Skin no rashes, warm and dry Neurologic moves all extremities and awake; no focal motor deficits Psychiatric A+Ox3, euthymic affect Lymphatic no lymphedema Discharge Plan Discharge Items Patient Disposition: Home - Self-Care Reason For Visit: CHEST PAIN Discharge Diagnosis: Myocardial demand ischemia Uncontrolled hypertension Acute on chronic heart failure with preserved ejection fraction Small pericardial effusion Condition on Discharge: Good Activity: As commented below Non-emergency contact: Primary Care Provider and Alternative Dispute Resolution Mediator Call non-emergency contact if: you have any medication questions and your symptoms worsen Follow-up/Referrals: Osvaldo Garcia MD [Physician] - (Please schedule a follow-up within 2 to 3 weeks.) Marci Jenkins CRNP [Primary Care Provider] - (Please follow-up within 1 to 2 weeks after discharge.) Diet: Low Sodium (2gm) Fluids: 2000ml (8 cups) Addtl Attending Provider Instructions: You were admitted with chest pressure and strain on the heart with uncontrolled high blood pressure. He had a cardiac catheterization which showed normal coronary arteries. For better blood pressure control, you were given Lasix through the IV to get fluid off and your amlodipine will be increased to 5 Mg twice a day. Please follow-up with the industrial ecologist and your primary care physician within 2 weeks. Call your Primary Care doctor if any of the following symptoms or problems start or get worse: * Shortness of breath or difficulty breathing * Wake up at night short of breath * Chest pain * Cough * Swelling of your hands, feet, or legs * More fatigued or tired with your normal activity * Palpitations - sudden fast heart beats WEIGHT * Weigh yourself every morning after using the bathroom. * Use the same scale. * Wear the same amount of clothing. * Write your weight down on a chart. * Call your Primary Care doctor if you gain more than 2-3 pounds in 1-2 days. MEDICATIONS * Use this discharge instruction sheet for medication instructions. * Take your medications at the time your doctor ordered. * Do not skip a dose of your medicines. * If you miss a dose of medicine, take it as soon as possible, but DO NOT DOUBLE A DOSE. * Read your medicine information when you get home. * Know all of the side effects of your medicine. If in doubt, ask your pharmacist * Call your Primary Care doctor's office if you have any side effects. * Be sure all of your doctors know what medicine and herbs you take (including cold, flu, and herbal medicine). Take the following with you to your follow-up doctor appointments: * Weight Chart * Medication List * List of questions Do not drink excessive alcohol, beer or wine. Addtl Metal Loader Provider Instructions: ACTIVITY RECOMMENDATIONS: Excess manipulation of the wrist should be avoided for the next 24-48 hours. * No lifting over 2 pounds (approximately a 1/2 gallon of milk) with the utilized arm for 24 hours. * No strenuous activity such as bowling or tennis for 3 days. * Keep the site of the procedure covered with a bandage for 24 hours. *You may shower the day after the procedure. Do not take a tub bath or submerge the puncture site in water for the next 3 days. *Do not operate any motorized equipment for 3 days. SPECIAL CARE INSTRUCTIONS: The site may be slightly bruised and sore following your procedure. Should any of the following occur, contact the Dr. who performed your procedure. 1. Redness/inflammation, swelling, chills, or fever, or colored drainage at procedure site within 3-7 days after your procedure. 2. Coldness, discoloration, ongoing numbness, severe pain, or swelling. Expect mild tingling of hand and tenderness at the puncture site for up to three days. If this persists beyond three days, or other symptoms develop, notify the DrLaura who performed your procedure. BLEEDING: If the procedure site on your wrist begins to bleed, do not panic 1. Place 1 or 2 fingers firmly just slightly above the insertion site to stop the bleeding. You may be able to feel your pulse as you hold pressure. 2. Lift your finger after 5 minutes to see if the bleeding has stopped. 3. Once the bleeding has stopped, gently wipe the wrist area clean with a bandage. * If the bleeding from your wrist does not stop after 10 minutes, or if there is a large amount of bleeding or spurting, call 911 (do not drive yourself to the hospital). SKIN IRRITATION: * You may experience some redness and/or swelling in the area where radiation was administered. If any skin irritation occurs, please contact your family physician. FOLLOW UP VISIT: Keep any scheduled doctor appointments. Pending Studies at Discharge: Yes (NYA) Stand-Alone Forms: [facility] Medications and DC Order Prescriptions: New amlodipine [Norvasc] 5 mg Tablet 5 mg PO BID Qty: 60 0RF Continued buspirone 5 mg tablet 5 mg PO BID trazodone 50 mg tablet 25 - 50 mg PO HS Rx Instructions: Patient takes 25mg - 50mg every night roughly 20 minutes before bedtime atorvastatin 10 mg tablet 10 mg PO HS aspirin 81 mg Tablet,Delayed Release (Dr/Ec) 81 mg PO DAILY ibuprofen 200 mg Tablet 800 mg PO DAILY furosemide 20 mg tablet 20 mg PO QAM atenolol 50 mg tablet 50 mg PO QAM cranberry 500 mg Capsule 500 mg PO DAILY Rx Instructions: administer with meals valsartan 160 mg tablet 320 mg PO QAM duloxetine 60 mg capsule,delayed release(DR/EC) 60 mg PO DAILY PreserVision AREDS-2 250-90-40-1 mg Capsule 2 tab PO QAM multivitamin Tablet 1 tab PO QAM Discontinued amlodipine 5 mg tablet 5 mg PO QAM Discharge Orders: Discharge Order- CHF (Routine); Ordered 01/16/25 Ordered By: Noni Cabral Admission Data Admit Date/Time: 01/15/25 18:59 Attending Provider: Noni Cabral Admit Provider: Noni Cabral Primary Care Provider: Marci Jenkins Other Providers: Noni Cabral; Jb Jamil Hospital Stay Data Consultations 01/15/25 18:09 ED Decision to Admit Stat 01/15/25 18:52 Consult Cardiology Routine Procedures Performed Operation Date: 01/16/25 14:30 Actual Procedures p Cineradiography w/Routine Exam - Jean Hairston MD p Cath, Left with Cors and Vent - Jean Hairston MD Diagnostic Imagining Performed 01/15/25 18:40 CT angio chest PE protocol Stat 01/16/25 14:33 CL Cath Imgs for PACS use only Stat Echocardiogram Discharge Instructions Given to Patient (Per Discharging Provider) You were admitted with chest pressure and strain on the heart with uncontrolled high blood pressure. He had a cardiac catheterization which showed normal coronary arteries. For better blood pressure control, you were given Lasix through the IV to get fluid off and your amlodipine will be increased to 5 Mg twice a day. Please follow-up with the industrial ecologist and your primary care physician within 2 weeks. Call your Primary Care doctor if any of the following symptoms or problems start or get worse: * Shortness of breath or difficulty breathing * Wake up at night short of breath * Chest pain * Cough * Swelling of your hands, feet, or legs * More fatigued or tired with your normal activity * Palpitations - sudden fast heart beats WEIGHT * Weigh yourself every morning after using the bathroom. * Use the same scale. * Wear the same amount of clothing. * Write your weight down on a chart. * Call your Primary Care doctor if you gain more than 2-3 pounds in 1-2 days. MEDICATIONS * Use this discharge instruction sheet for medication instructions. * Take your medications at the time your doctor ordered. * Do not skip a dose of your medicines. * If you miss a dose of medicine, take it as soon as possible, but DO NOT DOUBLE A DOSE. * Read your medicine information when you get home. * Know all of the side effects of your medicine. If in doubt, ask your pharmacist * Call your Primary Care doctor's office if you have any side effects. * Be sure all of your doctors know what medicine and herbs you take (including cold, flu, and herbal medicine). Take the following with you to your follow-up doctor appointments: * Weight Chart * Medication List * List of questions Do not drink excessive alcohol, beer or wine. Total Time Total Time Spent Total Time Spent (In Minutes): 35 minutes Total Time Includes: Examination of the Patient, Discharge Planning, Medication Reconciliation and Communication With Other Providers (Cardiology) Coding Level of Care Code 79630 INP/OBS DISCH >30 MIN Diagnoses Non-ST elevation UT (NSTEMI) I21.4 Chronic diastolic CHF (congestive heart failure) I50.32 Pericardial effusion I31.39 Hypertension I10
[2025-01-16] MEDS ORDERED: amLODIPine BESYLATE 5 MG TAB PO SCH (21:00)
[2025-01-19 08:57] LABS: Anti Nuclear Antibody Screen POSITIVE (NEGATIVE)
[2025-01-19 09:19] LABS: ANA Pattern Nuclear, Speckled
== END 2025-01-16 20:52 | disposition home or self-care (01) | DRG 280 ==
LOC: SUATTDRO → ED 15:09 → 4W 18:59 → INTOOBSV 18:59 → 4W 21:44